=== PATIENT | female | born 1990 | race Caucasian/White ===

== ENCOUNTER 2020-03-17 18:03 | Emergency (ER) | payer OTHER ==
[~2020-03-17] VITALS: Ht 170.2 cm; Wt 136.4 kg
[2020-03-17] MEDS ORDERED: BUPR75 PO (18:23)
[2020-03-17] MEDS ORDERED: GABA-1216 PO (18:23)
[2020-03-17] MEDS ORDERED: PRAZ1 PO (18:23)
[2020-03-17] MEDS ORDERED: SODIUM CHLORIDE 0.9% 1,000 ML IV ONE (18:45)
[2020-03-17] MEDS ORDERED: ONDANSETRON HCL 4 MG/2 ML VIAL IVP ONE (18:45)
[2020-03-17] MEDS ORDERED: LOPERAMIDE HCL 2 MG CAPSULE PO ONE (18:45)
[2020-03-17 20:45] LABS: COVID AG,FIA SOURCE NASOPHARYNGEAL
[2020-03-17 21:33] VITALS: BP 115/61
== END 2020-03-17 21:38 | disposition home or self-care (01) ==
LOC: EMS 18:06
DX: R19.7 Diarrhea, unspecified (principal); R11.10 Vomiting, unspecified; R10.84 Generalized abdominal pain; F32.9 Major depressive disorder, single episode, unspecified; F17.210 Nicotine dependence, cigarettes, uncomplicated; Z79.899 Other long term (current) drug therapy; Z20.828 Contact with and (suspected) exposure to other viral communicable diseases
CPT/HCPCS: 87426; 96361; 96374; 99283; J2405